=== PATIENT | female | born 1955 | race Caucasian/White ===

== ENCOUNTER 2017-08-11 15:38 | Outpatient (CLI) | payer BC | END 2017-08-11 15:39 | disposition home or self-care (01) | LOC: BICMAMMO 15:38 | PROVIDERS: ATTEND Obstetrics & Gynecology | DX: Z12.31 Encounter for screening mammogram for malignant neoplasm of breast (principal) | CPT/HCPCS: 77063; 77067 ==

== ENCOUNTER 2017-12-08 13:10 | Outpatient (CLI) | payer BC | END 2017-12-08 13:11 | disposition home or self-care (01) | LOC: BICRAD 13:10 | PROVIDERS: ATTEND Physician Assistant Medical | DX: M25.561 Pain in right knee (principal); M17.11 Unilateral primary osteoarthritis, right knee; M81.0 Age-related osteoporosis without current pathological fracture; M25.461 Effusion, right knee ==

== ENCOUNTER 2019-07-12 13:57 | Outpatient (CLI) | payer BC, MEDICARE ==
--- NOTE | 2019-07-12 14:58 | BD ---
Exam: DEXA Bone Density 07/12/19 HISTORY: Postmenopausal. Lumbar Spine: BMD (g/cm2) T-SCORE L1 0.680 -2.8 L2 0.779 -2.3 L3 0.737 -3.2 L4 0.720 -3.1 L1-L4 0.730 -2.9 Left Femoral Neck: 0.645 -1.8 Total Femur: 0.853 -0.7 Impression: Osteopenia of the left femoral neck and osteoporosis of the lumbar spine. POS: [facility]
--- NOTE | 2019-07-12 16:49 | RAD ---
3 views right RIBS: 07/12/2019 COMPARISON: None HISTORY: Chest pain FINDINGS: No fracture or dislocation. There is mild degenerative change of the right acromioclavicula r joint. Clips in right upper quadrant suggest prior cholecystectomy. IMPRESSION: No acute findings.
--- NOTE | 2019-07-12 16:54 | RAD ---
2 views of the left ribs: 07/12/2019 COMPARISON: None HISTORY: Pain FINDINGS: No fracture or dislocation. Multiple postoperative clips are noted in the left upper quadra nt. IMPRESSION: No displaced fracture. Given unexplained chest pain, CT examination suggested.
== END 2019-07-12 13:58 | disposition home or self-care (01) ==
LOC: BICMAMMO 13:57
PROVIDERS: ATTEND Obstetrics & Gynecology
DX: Z13.820 Encounter for screening for osteoporosis (principal); R07.81 Pleurodynia; M85.852 Other specified disorders of bone density and structure, left thigh; M81.0 Age-related osteoporosis without current pathological fracture
CPT/HCPCS: 77080

== ENCOUNTER 2019-07-30 08:51 | Outpatient (CLI) | payer BC, MEDICARE ==
--- NOTE | 2019-07-30 09:31 | RAD ---
XR Knee Rt 4 View STANDARD History: Pain in right knee Comparison: None. Findings: Large joint effusion. No acute displaced fracture is appreciated. Mild tricompartmental ost eophyte formation. Impression: Large joint effusion greater than would be expected for moderate tricompartmental degener ative changes. This could be sequelae of trabecular likely impaction fracture versus internal derangement. MRI recommended if clinically warranted.
--- NOTE | 2019-07-30 10:05 | RAD ---
RADIOGRAPH LEFT HAND 3 VIEWS: DATE: 07/30/2019. HISTORY: A 64-year-old female with left hand pain. FINDINGS: Diffuse osteopenia. Joint space narrowing and sclerosis at STT complex. Joint space narrowing and m ild sclerosis at 4th and 5th DIPs. No moderate size or large osteophytes at any joint. No fracture or dislocation. No erosions. IMPRESSION: 1. Mild to moderate osteoarthrosis at the triscaphe region and the 4th and 5th distal interphalangea l joints. 2. Osteopenia. POS: CET
== END 2019-07-30 08:52 | disposition home or self-care (01) ==
LOC: BICRAD 08:51
PROVIDERS: ATTEND Physician Assistant Medical
DX: M25.561 Pain in right knee (principal); M79.642 Pain in left hand; M85.80 Other specified disorders of bone density and structure, unspecified site; M19.041 Primary osteoarthritis, right hand; M25.442 Effusion, left hand; M19.042 Primary osteoarthritis, left hand

== ENCOUNTER 2019-09-11 12:26 | Outpatient (CLI) | payer BC, MEDICARE ==
--- NOTE | 2019-09-11 13:27 | RAD ---
LEFT KNEE 2 VIEWS: HISTORY: Secondary osteoarthritis with knee pain and swelling bilaterally. FINDINGS/IMPRESSION: Tricompartment arthrosis and degenerative change. No fracture or dislocation. No plain film evidenc e for significant acute inflammatory arthritis. POS: [facility]RE
--- NOTE | 2019-09-11 13:27 | RAD ---
RIGHT KNEE 2 VIEWS: HISTORY: Bilateral secondary osteoarthritis. FINDINGS/IMPRESSION: Tricompartment arthrosis and degenerative change. No fracture or dislocation. No evidence for signi ficant acute inflammatory arthritis. POS: RRE
== END 2019-09-11 12:27 | disposition home or self-care (01) ==
LOC: BICRAD 12:26
PROVIDERS: ATTEND Internal Medicine Rheumatology
DX: M17.4 Other bilateral secondary osteoarthritis of knee (principal); M19.041 Primary osteoarthritis, right hand; M17.0 Bilateral primary osteoarthritis of knee

== ENCOUNTER 2020-07-30 08:22 | Outpatient (CLI) | payer MEDICARE, BC | END 2020-07-30 08:23 | disposition home or self-care (01) | LOC: BICMAMMO 08:22 | PROVIDERS: ATTEND Obstetrics & Gynecology | DX: Z12.31 Encounter for screening mammogram for malignant neoplasm of breast (principal) | CPT/HCPCS: 77063; 77067 ==

== ENCOUNTER 2022-04-21 08:47 | Outpatient (CLI) | payer MEDICARE, BC | END 2022-04-21 08:48 | disposition home or self-care (01) | LOC: LABBT 08:47 | PROVIDERS: ATTEND Orthopaedic Surgery | DX: Z01.818 Encounter for other preprocedural examination (principal); M17.11 Unilateral primary osteoarthritis, right knee | CPT/HCPCS: 71046; 93005; 93010 ==

== ENCOUNTER 2022-07-27 10:34 | Outpatient (CLI) | payer MEDICARE, BC | END 2022-07-27 10:35 | disposition home or self-care (01) | LOC: TBSIIMAG 10:34 | PROVIDERS: ATTEND Anesthesiology Pain Medicine | DX: M51.16 Intervertebral disc disorders with radiculopathy, lumbar region (principal); M48.061 Spinal stenosis, lumbar region without neurogenic claudication; M48.07 Spinal stenosis, lumbosacral region | CPT/HCPCS: 72148 ==

== ENCOUNTER 2022-09-27 09:53 | Outpatient (CLI) | payer MEDICARE, BC | END 2022-09-27 09:54 | disposition home or self-care (01) | LOC: BICMAMMO 09:53 | PROVIDERS: ATTEND Obstetrics & Gynecology | DX: Z12.31 Encounter for screening mammogram for malignant neoplasm of breast (principal); Z13.820 Encounter for screening for osteoporosis; M81.0 Age-related osteoporosis without current pathological fracture; M85.89 Other specified disorders of bone density and structure, multiple sites; E28.39 Other primary ovarian failure | CPT/HCPCS: 77063; 77067; 77080 ==

== ENCOUNTER 2023-11-25 10:29 | Outpatient (CLI) | payer MEDICARE, BC | END 2023-11-25 10:30 | disposition home or self-care (01) | LOC: BICMAMMO 10:29 | PROVIDERS: ATTEND Obstetrics & Gynecology | DX: Z12.31 Encounter for screening mammogram for malignant neoplasm of breast (principal) | CPT/HCPCS: 77063; 77067 ==

== ENCOUNTER 2024-12-18 09:41 | Outpatient (CLI) | payer MEDICARE, BC | END 2024-12-18 09:42 | disposition home or self-care (01) | LOC: BICMAMMO 09:41 | PROVIDERS: ATTEND Obstetrics & Gynecology | DX: Z12.31 Encounter for screening mammogram for malignant neoplasm of breast (principal); M81.0 Age-related osteoporosis without current pathological fracture; M85.859 Other specified disorders of bone density and structure, unspecified thigh | CPT/HCPCS: 77063; 77067; 77080 ==